=== PATIENT | female | born 1945 | race Caucasian/White ===

== ENCOUNTER → 2016-11-09 | Outpatient (CLI) | payer OTHER | LOC: NUC 14:07 | DX: M85.80 Other specified disorders of bone density and structure, unspecified site (principal) ==

== ENCOUNTER → 2017-08-16 | Outpatient (CLI) | payer OTHER | LOC: RAD 01:06 | DX: Z12.31 Encounter for screening mammogram for malignant neoplasm of breast (principal) ==

== ENCOUNTER → 2018-09-10 | Outpatient (CLI) | payer OTHER | LOC: RAD 12:54 | DX: Z12.31 Encounter for screening mammogram for malignant neoplasm of breast (principal) ==

== ENCOUNTER → 2018-10-11 | Outpatient (CLI) | payer OTHER | LOC: RAD 01:19 | DX: R92.2 Inconclusive mammogram (principal); R92.8 Other abnormal and inconclusive findings on diagnostic imaging of breast ==

== ENCOUNTER → 2019-04-03 | Outpatient (CLI) | payer OTHER | LOC: ULTRA 02:57 → RAD 02:57 | DX: R92.8 Other abnormal and inconclusive findings on diagnostic imaging of breast (principal) ==

== ENCOUNTER → 2019-11-19 | Outpatient (CLI) | payer OTHER | LOC: RAD 12:28 | PROVIDERS: ATTEND Preventive Medicine Public Health & General Preventive Medicine | DX: Z12.31 Encounter for screening mammogram for malignant neoplasm of breast (principal) ==

== ENCOUNTER → 2020-12-03 | Outpatient (CLI) | payer OTHER | LOC: RAD 09:45 | PROVIDERS: ATTEND Preventive Medicine Public Health & General Preventive Medicine | DX: Z12.31 Encounter for screening mammogram for malignant neoplasm of breast (principal); N64.89 Other specified disorders of breast ==